=== PATIENT | male | born 1945 | race Caucasian/White ===

== ENCOUNTER 2020-07-28 09:52 | Outpatient (CLI) | payer MEDICARE, OTHER ==
--- NOTE | 2020-07-29 08:02 | NUR ---
CT ABD/PEL REPORT WAS FAXED TO PATIENT'S MD THIS MORNING
== END 2020-07-28 23:59 | disposition home or self-care (01) ==
LOC: CT 09:52
PROVIDERS: ATTEND Surgery
DX: K57.30 Diverticulosis of large intestine without perforation or abscess without bleeding (principal); J98.11 Atelectasis; I51.7 Cardiomegaly; M95.4 Acquired deformity of chest and rib; I70.0 Atherosclerosis of aorta; M85.88 Other specified disorders of bone density and structure, other site; M47.819 Spondylosis without myelopathy or radiculopathy, site unspecified